=== PATIENT | male | born 1985 | race Caucasian/White ===

== ENCOUNTER 2017-08-23 11:02 | Emergency (ER) | payer SELFPAY ==
[~2017-08-23] VITALS: Ht 188 cm; Wt 105.0 kg
[~2017-08-23 11:02] MED LIST: BACTRIM,SEPT1 TABLET PO; KEFLEX500 MG PO; MOTRIN600 MG PO; MOTRIN800 MG PO; NOHOMEMEDS
[2017-08-23 12:13] LABS: HEMATOCRIT 45.5 % (38.0-50.0); MCH 30.4 PG (29.0-34.0); MCHC 35.2 G/DL (30.0-36.0); MCV 86.5 FL (86-99); PLATELET COUNT 290 K/uL (156-360); RBC DIS.WIDTH-SD 38.1 % (39-53); RED BLOOD COUNT 5.26 M/uL (4.00-5.50); WHITE BLOOD COUNT 10.6 K/uL (4.1-10.2)
[2017-08-23 12:21] LABS: CHLORIDE 106 mEq/L (99-109); POTASSIUM 4.6 mEq/L (3.7-5.4); SODIUM 141 mEq/L (136-147)
[2017-08-23 12:23] LABS: GLUCOSE 127 mg/dL (70-99)
[2017-08-23 12:27] LABS: CREATININE 1.1 mg/dL (0.6-1.3); GFR ESTIMATE (CALCULATED) > 59 mL/min/ (58.99-99999); UREA NITROGEN (BUN) 12 mg/dL (9-23)
[2017-08-23] MEDS ORDERED: ULTRAM50 MG PO (12:46)
[2017-08-23 13:11] VITALS: BP 169/117
== END 2017-08-23 13:15 | disposition home or self-care (01) ==
LOC: EME 11:02
PROVIDERS: Nurse Practitioner Family
DX: M25.571 Pain in right ankle and joints of right foot (principal); M25.471 Effusion, right ankle
CPT/HCPCS: 73610; 80048; 85027; 99281; 99284